=== PATIENT | female | born 1970 | race Caucasian/White ===

== ENCOUNTER 2017-05-24 02:10 | Inpatient (IN) | payer OTHER ==
[~2017-05-24] VITALS: Ht 167.6 cm; Wt 83.5 kg
[~2017-05-24 02:10] MED LIST: CARAFATE1 GM/10 M1 PO; DILAUDID2 M1 PO; PROTONIX40 M3 PO
--- NOTE | 2017-05-24 13:05 | Operative Report ---
Operative/Inv Procedure Report Surgery Date: 05/24/17 Name of Procedure: Laparoscopic revision/redo of gastrojejunostomy, trimming of the pouch, EGD Pre-Operative Diagnosis: Chronic marginal ulcer, dysphagia, GERD, s/p LRYGB Post-Operative Diagnosis: Same Estimated Blood Loss: 50ml to 100ml Surgeon/Dipper Machine Operator: Price Bray DO, MD Anesthesia: general endotracheal tube IV Fluids: 1200 cc Drains: 10 Fr RUQ ELISABETH Drain Specimens: Gastrojejunostomy with pouch Complications: None Condition: Stable Operative Indication: This is a 46-year-old female who presented to the office with dysphagia and upper abdominal pain. The patient is status post laparoscopic gastric bypass several years ago. Patient had an upper endoscopy approximately a year ago that showed a small marginal ulcer. Patient has recently been taking medications for very long time for the chronic ulcer. Repeat upper endoscopy showed a worsening ulcer with a large crater. Given the chronicity of the ulcer and nonhealing with proper medications I discussed with the patient a laparoscopic revision of her gastrojejunostomy. All risks including but not limited to bleeding, infection, leak, stricture, recurrence of marginal ulcers, injury to surrounding bowel/esophagus/stomach/liver/spleen, dumping syndrome, DVT/PE, and mortality of 05/999 patients were discussed in detail. The patient understood everything and decided to proceed. Operative/Procedure Note Note: The patient was brought to the operating room and placed on the table in supine position. Venodyne stockings were placed and adequate general endotracheal anesthesia was obtained. The patient was prepped and draped in standard surgical fashion. Began the procedure by making a 2 cm transverse incision supraumbilically and slightly to the left of the midline. Then using a 12 mm clear Visiport and a 10 mm 0 laparoscope the abdominal cavity was accessed. Great care was taken to go through the anterior rectus sheath, the posterior rectus sheath, and through the peritoneum. Once we entered the peritoneum the abdominal cavity was insufflated to 15 mmHg. Upon initial examination no obvious gross pathology was seen. Adhesions were noted between the gastric pouch/gastrojejunostomy and the liver. Accessory trocars were placed, 5 mm in the epigastrium for the Tian liver retractor. The liver retractor was inserted and the liver was retracted anteriorly exposing the hiatus which was behind several adhesions. 5 mm ports are placed in the right and left upper quadrant, 5 mm left lateral port and a 12 mm right lateral port. Procedure began by mobilizing the pouch and the jejunum off of the underside of the liver. This was done using Harmonic scalpel, Endo Brendon, and blunt dissection. Once all the adhesions were taken down the hiatus was adequately visualized, no obvious hiatal hernia was seen. Dissection then proceeded to isolating the gastric pouch from the gastric remnant and isolating the proximal jejunum just distal to the gastrojejunostomy. This was all done using Harmonic scalpel and EndoShears. The gastric pouch was noted to have a large lateral outpouching, which appeared as the fundus. Petersons defect was closed, it had to be opened to allow adequate mobilization of the jejunum. Once everything was adequately mobilized once again the pouch did appear large. An upper endoscopy was performed to assure that the gastrojejunostomy was excised. The gastrojejunostomy was visualized with an upper endoscopy and the chronic ulcer was visualized as well. After confirmation that we have adequate room to excise a gastrojejunostomy, we began excising it using Endo LANCE staplers. At first the jejunum was transected just distal to the anastomosis using 60 mm harding staple load. The mesentery was divided using Harmonic scalpel maintaining hemostasis. The gastric pouch was then resected just proximal to the gastrojejunostomy using a 60 mm purple staple load. An Maia tube was then placed and the pouch was trimmed laterally using 60 mm purple staple loads as well. At the completion the gastrojejunostomy with the pouch were removed off to the side and the new pouch appeared small without any fundus. The staple line on the gastric pouch was then oversewn using 2-0 Vicryl suture in a running fashion. Following this the jejunum was coming up to the gastric pouch with no tension. A in enterotomy was made on the jejunum approximately 5 cm from the staple line fdc between the mesenteric and antimesenteric side. And then a gastrotomy was made posterior to the staple line on the gastric pouch. Following this a side to side gastrojejunostomy was created using a 45 mm purple staple load approximately 3-3-1/2 cm in diameter. The Maia tube was passed through the common enterotomy and the common enterotomy was closed using 2-0 Vicryl suture in a running fashion double layer. Following this a air and a methylene blue leak test were performed, both were negative for leaks. We once again examined our anastomosis some bleeding was noted at the jejunum staple line and that was controlled using endoclips. Following this another upper endoscopy was performed. The pouch was noted to be much smaller without fundus, and the anastomosis appeared widely patent. No obvious bleeding was noted. The endoscope was removed. A 10 Czech ELISABETH drain was placed through the right upper quadrant incision under the liver and over the spleen. The specimen was removed through the 12 mm right lateral port site. The 12 mm port site fascia was closed using 0 Vicryl suture. The abdomen was desufflated. All ports removed under direct visualization, no obvious bleeding was noted. Skin was closed using 4-0 Monocryl. Steri-Strips and dressings were placed. The patient was successfully extubated and transferred to recovery room in stable condition. The patient tolerated the procedure well with no Complications. Findings: Chronic ulcer at the GJ, large fundus on the gastric pouch, complete redo of the gastrojejunostomy CC: Angela PAIZ,Harley
--- NOTE | 2017-05-24 13:12 | Admission Core Measures ---
Acute Coronary Syndrome (CM) ACS Core Measures Acute Coronary Syndrome Diagnosis No Congestive Heart Failure (NEW) CHF Core Measures Congestive Heart Failure Diagnosis No Cerebrovascular Accident (NEW) CVA Core Measures CVA/TIA Diagnosis No Venous Thromboembolism VTE Core Sahra (View Protocol) VTE Risk Factors Surgery No Mechanical VTE Prophylaxis d/t N/A MechProphylax Ordered No VTE Pharm Prophylaxis d/t NA PharmProphylax ordered Problem List As ranked by this Provider includes Assessment & Plan 1. Gastric bypass status for obesity 2. Gastrojejunal ulcer HOME MEDS Home Med List Hydromorphone HCl (Dilaudid) 2 MG TABLET 1 TAB PO TIDPRN FRACTURED ANKLE ( Reported) Pantoprazole Sodium (Protonix) 40 MG TABLET.DR 1 TAB PO BID GASTRIC ULCER ( Reported) Sucralfate (Carafate) 1 GRAM/10 ML ORAL.SUSP 10 ML PO 4 TIMES/DAY GASTRIC ULCER (Reported)
--- NOTE | 2017-05-24 13:17 | Surg Short-stay <48hrs Dis Sum ---
Visit Information Visit Dates Admission Date: 05/24/17 Discharge Date: 05/26/17 Surgical Short Stay DC Summary Admission Diagnosis: Chronic marginal ulcer, dysphagia, GERD, s/p LRYGB Final Diagnosis: SAME ABOVE, S/P Surgery Date: 05/24/17 Name of Procedure: Laparoscopic revision/redo of gastrojejunostomy, trimming of the pouch, EGD Procedure(s): Surgery Date: 05/24/17 Name of Procedure: Laparoscopic revision/redo of gastrojejunostomy, trimming of the pouch, EGD Summary/Significant Findings: Electively scheduled laparoscopic revision/redo of gastrojejunostomy, trimming of the pouch, EGD on 05/24/17 by for a chronic marginal ulcer, dysphagia, GERD, s/p LRYGB. She was started on a stage 1 bariatric diet post-op, and kept npo for an upper gi study on POD#1 morning to rule out leak and obstruction. Pain control transitioned from iv to oral medication. Protonix resumed post-operatively for continued GI prophylaxis. Tolerating stage 1 bariatric diet prior to discharge home. Benji teaching done due to recent ankle fracture in the setting of this revisional gastric bypass surgery. ELISABETH drain removed prior to discharge to home. Condition at Discharge: stable Discharge Disposition: home or self care Discharge instructions provided to patient/family: Yes Post discharge follow-up plan: one week follow up with Dr.Fridman bernal teaching done prior to discharge home Copies to: Angela PAIZ,Harley
--- NOTE | 2017-05-24 13:20 | Patient Discharge Instructions ---
Discharge Instructions General Discharge Information You were seen/treated for: chronic marginal ulcer, dysphagia, GERD, s/p LRYGB You had these procedures: Surgery Date: 05/24/17 Name of Procedure: Laparoscopic revision/redo of gastrojejunostomy, trimming of the pouch, EGD Watch for these problems: fever>101.3, increased pain, redness/swelling/drainage, dizziness, shortness of breath, chest pains No bath, but you may shower: Yes Other wound care: ok to remove outer dressings. leave white steri strips in place. expect some drainage from previous drain site, for which dry guaze may be placed over this and changed daily until it stops draining. keep incisions clean & dry. Diet Continue normal diet: No Recommended Diet: Bariatric Additional DIET Information: bariatric stage diet advancement as directed, as tolerated Activity Full Activity/No Limits: No Activity Self Limited: Yes Pounds, do NOT lift more than: 10 Other activity limits: no heavy lifting. no strenuous activity. Acute Coronary Syndrome Inclusion Criteria At DC or during hospital stay patient has or had the following: ACS DIAGNOSIS No Discharge Core Measures Meds if any: Prescribed or Continued at Discharge Meds if any: NOT Prescribed or Continued at Discharge Congestive Heart Failure Inclusion Criteria At DC or during hospital stay patient has or had the following: CHF DIAGNOSIS No Discharge Core Measures Meds if any: Prescribed or Continued at Discharge Meds if any: NOT Prescribed or Continued at Discharge Cerebrovascular accident Inclusion Criteria At DC or during hospital stay patient has or had the following: CVA/TIA Diagnosis No Discharge Core Measures Meds if any: Prescribed or Continued at Discharge Meds if any: NOT Prescribed or Continued at Discharge Venous thromboembolism Inclusion Criteria VTE Diagnosis No VTE Type NONE VTE Confirmed by (Test) NONE Discharge Core Measures - Per Current guidelines, there needs to be overlap - treatment for the first 5 days of Warfarin therapy. - If discharged on Warfarin prior to 5 days of - overlap therapy, the patient will need to be - assessed for post discharge needs including - *Post discharge parental anticoagulation - *Warfarin and/or parental anticoagulation education - *Follow up date to check INR post discharge At least 5 days overlap therapy as Inpatient No Meds if any: Prescribed or Continued at Discharge Note: Overlap Therapy is Warfarin and Anticoagulant Meds if any: NOT Prescribed or Continued at Discharge
[2017-05-24 15:00] VITALS: BP 138/80
--- NOTE | 2017-05-24 15:50 | PN- Bariatrics ---
Subjective Subjective: POST-OP NOTE Reports epigastric discomfort and some nausea. Asking for sips. Reports pain uncontrolled currently. "I have a tolerance to pain medication" she reports, since she has been taking dilaudid at home recently for her ankle fracture. She is currently non-weight bearing on her left leg, and ambulating with a scooter device. She currently denies dizziness. No shortness of breath. No chest pains. Objective Vital Signs and I&Os Vital Signs Date Time Temp Pulse Resp B/P B/P Pulse O2 O2 Flow FiO2 Mean Ox Delivery Rate 05/24 1500 97 Room Air 05/24 1500 97.9 78 18 138/80 97 Room Air Intake & Output 05/24 1600 05/24 0800 05/24 0000 05/23 1600 05/23 0800 05/23 0000 Intake Total Output Total Balance Patient 184 lb 188 lb Weight Weight Reported by Patient Measurement Method Physical Exam: General - alert & oriented, but sleepy. uncomfortable appearing. no acute distress. Lungs - clear bilaterally. no w/r/r. Cardiac - s1s2. reg. Abdomen - soft. dressings c/d/i. ELISABETH drain with scant bloody drainage. expected dominique-incisional tenderness. Extremities - warm bilaterally. left lower leg currently in cast, elevated on pillow. nvi. rle athrombic pump in place. calf nontender. Current Medications: Current Medications Sig/Elder Start time Last Medication Dose Route Stop Time Status Admin Acetaminophen 1,000 MG Q6 05/24 1800 AC N/A 1 UNIT IV 05/25 1214 Acetaminophen 1,000 MG .STK-MED ONE 05/24 0658 DC IV 05/24 0659 Cefazolin Sodium 2,000 MG Q8H 05/24 1800 CAN IV 05/25 0201 Cefazolin Sodium 2 GM Q8H 05/24 1800 AC N/A 1 UNIT IV 05/25 0229 Cefazolin Sodium 2,000 MG ONCE 05/24 0000 DC IV 05/24 2359 Dexamethasone 8 MG ONCE PRN 05/24 1545 AC IV PUSH Dextrose/Lactated 1,000 ML Q8H 05/24 1515 AC Ringer's IV Fentanyl Citrate 200 MCG .STK-MED ONE 05/24 0659 DC IM 05/24 0700 Heparin Sodium 5,000 UNIT Q8 05/24 2200 AC (Porcine) SC Heparin Sodium 5,000 UNIT ONCE 05/24 0000 DC (Porcine) SC 05/24 2359 Hydrocodone Bitart/ 15 ML Q6P PRN 05/24 1515 AC Acetaminophen PO Hydromorphone HCl 1 MG Q4P PRN 05/24 1515 AC IV Hydromorphone HCl 2 MG .STK-MED ONE 05/24 0658 DC IM 05/24 0659 Midazolam HCl 4 MG .STK-MED ONE 05/24 0659 DC IM 05/24 0700 Ondansetron HCl 4 MG Q6P PRN 05/24 1515 AC IV Pantoprazole Sodium 40 MG DAILY 05/25 1000 AC IV Simethicone 40 MG Q6P PRN 05/24 1515 AC PO Assessment/Plan Assessment/Plan This 46 year old female with hx of chronic marginal ulcer, dysphagia, GERD, gastric bypass status, is POD#0 s/p laparoscopic revision/redo of gastrojejunostomy, trimming of the pouch, EGD stage 1 bariatric diet as tolerated npo after midnight for upper gi study in am iv dilaudid / iv tylenol prn pain control. hycet may need to be replaced by oral dilaudid pills antiemetics as needed. decadron if zofran ineffective hep sc - dvt ppx. will likely need lovenox teaching for home given her immobility PT eval - nwb lle (currently in cast) continue protonix - gi ppx f/u am labs monitor ELISABETH drain will d/w Core Measures Venous Thromboembolism VTE Risk Factors Surgery No Mechanical VTE Prophylaxis d/t N/A MechProphylax Ordered No VTE Pharm Prophylaxis d/t NA PharmProphylax ordered
[2017-05-24 22:15] VITALS: BP 140/80
[2017-05-25 02:34] VITALS: BP 142/88
[2017-05-25 06:00] VITALS: BP 136/88
--- NOTE | 2017-05-25 07:34 | PN- Bariatrics ---
See Addendum Subjective Subjective: Reports pain uncontrolled overnight, despite iv dilaudid freqency change to q2-3 prn pain. She reports hycet caused "burning pain". Her pain is mostly epigastric pain "feels like my ulcer pain". Some nausea, which is aggravated by movement. Voiding without difficulty. No dizziness. No shortness of breath. No chest pains. Objective Vital Signs and I&Os Vital Signs Date Time Temp Pulse Resp B/P B/P Pulse O2 O2 Flow FiO2 Mean Ox Delivery Rate 05/25 0600 98.4 62 20 136/88 98 05/25 0234 97.7 67 18 142/88 98 05/24 2300 Room Air 05/24 2215 98.2 62 20 140/80 95 Room Air 05/24 1900 Room Air 05/24 1500 97 Room Air 05/24 1500 97.9 78 18 138/80 97 Room Air Intake & Output 05/25 0800 05/25 0000 05/24 1600 05/24 0800 05/24 0000 05/23 1600 Intake Total 325 1265 155 Output Total 800 1440 Balance -475 -175 155 Intake, IV 325 1025 125 Intake, Oral 0 240 30 Number 0 Bowel Movements Output, 40 Drainage Output, Urine 800 1400 Patient 184 lb 188 lb Weight Weight Reported by Patient Measurement Method Physical Exam: General - alert & oriented. tearful. Lungs - clear bilaterally. no w/r/r. Cardiac - s1s2. reg. Abdomen - soft. dressings c/d/i. ELISABETH drain with scant bloody drainage. expected dominique-incisional tenderness. Extremities - warm bilaterally. left lower leg currently in cast, elevated on pillow. nvi. rle athrombic pump in place. calf nontender. Current Medications: Current Medications Sig/Edler Start time Last Medication Dose Route Stop Time Status Admin Acetaminophen 1,000 MG Q6 05/24 1800 AC 05/25 N/A 1 UNIT IV 05/25 1214 0556 Cefazolin Sodium 2,000 MG Q8H 05/24 1800 CAN IV 05/25 0201 Cefazolin Sodium 2 GM Q8H 05/24 1800 DC 05/25 N/A 1 UNIT IV 05/25 0229 0228 Cefazolin Sodium 2,000 MG ONCE 05/24 0000 DC IV 05/24 2359 Dexamethasone 8 MG ONCE PRN 05/24 1545 AC IV PUSH Dextrose/Lactated 1,000 ML Q8H 05/24 1515 AC 05/24 Ringer's IV 2353 Heparin Sodium 5,000 UNIT Q8 05/24 2200 AC 05/25 (Porcine) SC 0555 Heparin Sodium 5,000 UNIT ONCE 05/24 0000 DC (Porcine) SC 05/24 2359 Hydrocodone Bitart/ 15 ML Q6P PRN 05/24 1515 DC 05/24 Acetaminophen PO 2353 Hydromorphone HCl 2 MG Q3P PRN 05/25 0745 UNVr PO Hydromorphone HCl 4 MG Q3P PRN 05/25 0745 UNVr PO Hydromorphone HCl 1 MG Q2-3 HRS NEEDED.. 05/24 2014 AC 05/25 IV 0603 Hydromorphone HCl 1 MG Q4P PRN 05/24 1515 DC 05/24 IV 1928 Ondansetron HCl 4 MG Q6P PRN 05/24 1515 AC IV Pantoprazole Sodium 40 MG DAILY 05/25 1000 AC IV Simethicone 40 MG Q6P PRN 05/24 1515 AC 05/25 PO 0548 Results Last 48 Hours of Labs: Laboratory Tests 05/25 0650 Chemistry Sodium Pending Potassium Pending Chloride Pending Carbon Dioxide Pending Anion Gap Pending BUN Pending Creatinine Pending BUN/Creatinine Ratio Pending Glucose Pending Magnesium Pending Hematology CBC w Diff Pending WBC Pending RBC Pending Hgb Pending Hct Pending MCV Pending MCH Pending RDW Pending Plt Count Pending MPV Pending PUBS MCHC Pending Assessment/Plan Assessment/Plan This 46 year old female with hx of chronic marginal ulcer, dysphagia, GERD, gastric bypass status, is POD#1 s/p laparoscopic revision/redo of gastrojejunostomy, trimming of the pouch, EGD currently npo for upper gi study this morning. resume stage 1 diet if ugi negative for leak d/c hycet. try dilaudid pills (she was taking 2mg three times daily at home for ankle fracture) continue iv dilaudid / iv tylenol prn breakthrough pain antiemetics as needed. decadron if zofran ineffective hep sc - dvt ppx. will likely need lovenox teaching for home given her immobility PT eval - nwb lle (currently in cast) continue protonix - gi ppx f/u am labs monitor ELISABETH drain will d/w Core Measures Venous Thromboembolism VTE Risk Factors Surgery No Mechanical VTE Prophylaxis d/t N/A MechProphylax Ordered No VTE Pharm Prophylaxis d/t NA PharmProphylax ordered
[2017-05-25 08:18] LABS: ABSOLUTE BASOPHIL COUNT 0 /CUMM (0.0-0.2); ABSOLUTE EOSINOPHIL COUNT 0 /CUMM (0.0-0.7); ABSOLUTE GRANULOCYTE CT 6.1 /CUMM (1.4-6.5); ABSOLUTE LYMPH COUNT 1.4 /CUMM (1.2-3.4); ABSOLUTE MONOCYTE COUNT 0.5 /CUMM (0.10-0.60); BASOPHIL % 0.4 % (0.0-2.0); EOSINOPHIL % 0.1 % (0-5); GRANULOCYTE % 75.8 % (42.2-75.2); HEMATOCRIT 34.7 % (37-47); MEAN CORPUSCULAR HGB 28.8 PG (27.0-31.0); MEAN CORPUSCULAR HGB CONC 33.9 G/DL (33.0-37.0); MEAN CORPUSCULAR VOLUME 84.8 FL (81.0-99.0); MEAN PLATELET VOLUME 8.1 FL (7.4-10.4); PLATELET COUNT 258 /CUMM (130-400); RBC DISTRIBUTION WIDTH 14.9 % (11.5-14.5); RED BLOOD CELL CT 4.09 /CUMM (4.20-5.40)
--- NOTE | 2017-05-25 11:10 | RADIOLOGY REPORT ---
EXAMINATION: [place] UPPER GI SERIES CLINICAL INFORMATION: Status post revision of gastric bypass. Evaluate for leak or obstruction. COMPARISON: None TECHNIQUE: A single water-soluble contrast upper GI series with fluoroscopy and spot imaging was performed. The patient ingested 30 mL of Gastrografin without difficulty and was evaluated in the upright and recumbent positions. FINDINGS: Day Care Aide radiograph: There are surgical clips in the upper abdomen. There is a drain in the epigastric region. SWALLOWING: Unremarkable. ESOPHAGUS: Normal caliber and motility. GASTROESOPHAGEAL REFLUX: None. STOMACH/SMALL BOWEL: There appears to be a very small gastric remnant. Barium flows easily through this small gastric remnant and into the proximal jejunum through a patent gastrojejunostomy. There is no evidence of obstruction or leak. OTHER FINDINGS: None. FLUOROSCOPY TIME: 1 minute and 22 seconds NUMBER OF IMAGES: 1 train brakeman image and 9 fluoroscopic spot images. IMPRESSION: No evidence of obstruction or leak.
[2017-05-25 13:42] VITALS: BP 158/52
[2017-05-25 21:47] VITALS: BP 110/78
[2017-05-26 06:43] VITALS: BP 130/88
--- NOTE | 2017-05-26 07:49 | PN- Bariatrics ---
Subjective Subjective: Pain controlled better with dilaudid. Upper gi study yesterday negative for leak / obstruction. Tolerating stage 1 diet. No nausea. Reports some gas pains. Out of bed with the scooter assistive device for her ankle fracture (shes nonweight bearing on her left leg). No dizziness. No shortness of breath. No chest pains. Voiding well. Passing some flatus. Understands lovenox injections, and has prescription for a week of lovenox filled. She states she has protonix, carafate , and "plenty of dilaudid" at home, and therefore does not need any prescriptions filled at this time. She expects her will be picking her up today after 4pm. Objective Vital Signs and I&Os Vital Signs Date Time Temp Pulse Resp B/P B/P Pulse O2 O2 Flow FiO2 Mean Ox Delivery Rate 05/26 0643 98.5 74 18 130/88 96 Room Air 05/26 0600 96 Room Air 05/25 2200 Room Air 05/25 2147 98.0 79 18 110/78 96 Room Air 05/25 1400 96 Room Air 05/25 1342 98.0 70 20 158/52 96 Room Air 05/25 1130 Room Air Intake & Output 05/26 0800 05/26 0000 05/25 1600 05/25 0800 05/25 0000 05/24 1600 Intake Total 892 1230 2165 1600 1115 155 Output Total 560 7123 318 0474 1440 Balance 332 -90 1305 140 -325 155 Intake, IV 019 711 0744 1600 875 125 Intake, Oral 480 540 0 240 30 Number 0 0 0 0 Bowel Movements Output, 60 40 60 60 40 Drainage Output, Urine 500 6502 864 7382 1400 Patient 184 lb Weight Weight Reported by Patient Measurement Method Physical Exam: General - alert & oriented x 3. comfortable. no acute distress. Lungs - clear bilaterally. no w/r/r. Cardiac - s1s2. reg. Abdomen - soft. dressings stained but intact. ELISABETH drain with serosang fluid. expected dominique-incisional tenderness. Extremities - warm bilaterally. left leg in cast. nvi. right calf nontender. Current Medications: Current Medications Sig/Elder Start time Last Medication Dose Route Stop Time Status Admin Acetaminophen 1,000 MG Q6 05/24 1800 DC 05/25 N/A 1 UNIT IV 05/25 1214 1135 Dexamethasone 8 MG ONCE PRN 05/24 1545 AC IV PUSH Dextrose/Lactated 1,000 ML Q13H 05/26 0800 AC Ringer's IV Dextrose/Lactated 1,000 ML Q8H 05/24 1515 DC 05/26 Ringer's IV 0334 Heparin Sodium 5,000 UNIT Q8 05/24 2200 AC 05/26 (Porcine) SC 0643 Hydromorphone HCl 1 MG Q4-6 PRN PRN 05/26 0745 AC IV Hydromorphone HCl 2 MG Q3P PRN 05/25 0745 AC PO Hydromorphone HCl 4 MG Q3P PRN 05/25 0745 AC 05/25 PO 1534 Hydromorphone HCl 1 MG Q2-3 HRS NEEDED.. 05/24 2014 DC 05/26 IV 0649 Ketorolac 30 MG ONCE ONE 05/25 1045 DC 05/25 Tromethamine IV 05/25 1046 1132 Ketorolac 15 MG Q6-PRN PRN 05/25 1045 AC Tromethamine IV Ondansetron HCl 4 MG Q6P PRN 05/24 1515 AC IV Pantoprazole Sodium 40 MG DAILY 05/25 1000 AC 05/25 IV 0819 Simethicone 40 MG Q6P PRN 05/24 1515 AC 05/26 PO 0643 Sucralfate 1 GM Q12 PRN 05/25 2200 AC 05/25 PO 2215 Sucralfate 1 GM Q6 05/25 1200 DC 05/25 PO 1711 Results Last 48 Hours of Labs: Laboratory Tests 05/25 0650 Chemistry Sodium (137 - 145 mmol/L) 141 Potassium (3.5 - 5.1 mmol/L) 3.7 Chloride (98 - 107 mmol/L) 105 Carbon Dioxide (22 - 30 mmol/L) 28 Anion Gap (5 - 16) 9 BUN (7 - 17 mg/dL) 8 Creatinine (0.5 - 1.0 mg/dL) 0.7 Estimated GFR (>60 ml/min) > 60 BUN/Creatinine Ratio (7 - 25 %) 11.4 Glucose (65 - 99 mg/dL) 97 Magnesium (1.6 - 2.3 mg/dL) 1.8 Hematology CBC w Diff NO MAN DIFF REQ WBC (4.8 - 10.8 /CUMM) 8.0 RBC (4.20 - 5.40 /CUMM) 4.09 L Hgb (12.0 - 16.0 G/DL) 11.8 L Hct (37 - 47 %) 34.7 L MCV (81.0 - 99.0 FL) 84.8 MCH (27.0 - 31.0 PG) 28.8 RDW (11.5 - 14.5 %) 14.9 H Plt Count (130 - 400 /CUMM) 258 MPV (7.4 - 10.4 FL) 8.1 Gran % (42.2 - 75.2 %) 75.8 H Lymphocytes % (20.5 - 51.1 %) 17.2 L Monocytes % (1.7 - 9.3 %) 6.5 Eosinophils % (0 - 5 %) 0.1 Basophils % (0.0 - 2.0 %) 0.4 Absolute Granulocytes (1.4 - 6.5 /CUMM) 6.1 Absolute Lymphocytes (1.2 - 3.4 /CUMM) 1.4 Absolute Monocytes (0.10 - 0.60 /CUMM) 0.5 Absolute Eosinophils (0.0 - 0.7 /CUMM) 0 Absolute Basophils (0.0 - 0.2 /CUMM) 0 PUBS MCHC (33.0 - 37.0 G/DL) 33.9 Assessment/Plan Assessment/Plan This 46 year old female with hx of chronic marginal ulcer, dysphagia, GERD, gastric bypass status, is POD#2 s/p laparoscopic revision/redo of gastrojejunostomy, trimming of the pouch, EGD tolerating bariatric diet pain controlled better with dilaudid (she has pills at home from ankle fracture) continue oob/ambulation hep sc - dvt ppx. she has lovenox prescription filled for one more week and understands injections continue protonix / carafate - gi ppx ELISABETH drain removed d/c home today. her to pick her up after 4pm today will d/w Core Measures Venous Thromboembolism VTE Risk Factors Surgery No Mechanical VTE Prophylaxis d/t N/A MechProphylax Ordered No VTE Pharm Prophylaxis d/t NA PharmProphylax ordered
[2017-05-26] MEDS ORDERED: LOVENOX40 MG/0.1 SC (07:50)
[2017-05-26 15:50] VITALS: BP 138/80
== END 2017-05-26 15:50 | DRG 328 ==
LOC: SDA 02:10 → 2NB 02:10 → ENRESERV 13:22 → ENTRNSPT 14:29 → EDTRNSPTSTS 14:46 → 2NB 14:56 → CMPTRNSPT 14:59 → ENPENDDIS 05-26 07:59 → ENTRNSPT 05-26 15:46 → 2NB 05-26 15:50 → CMPTRNSPT 05-26 16:23
PROVIDERS: Physician Assistant
PROC: 0D164ZA Bypass Stomach to Jejunum, Percutaneous Endoscopic Approach (ICD-10-PCS; principal; 2017-05-24)
DX: K28.9 Gastrojejunal ulcer, unspecified as acute or chronic, without hemorrhage or perforation (principal); K21.9 Gastro-esophageal reflux disease without esophagitis; Z98.84 Bariatric surgery status
CPT/HCPCS: 2NBP; 36415; 74240; 82436; 97116-GO; 97161-GP; C9399; J0131; J0690; J1170; J1644; J1885; J2405; Q9968